=== PATIENT | male | born 1990 | race Caucasian/White ===

== ENCOUNTER 2017-02-17 18:42 | Emergency (ER) | payer MEDICAID ==
[~2017-02-17 18:42] MED LIST: AZITHROMYCIN 250 MG TAB PO SCH
[2017-02-17 18:48] VITALS: RESP 18
--- NOTE | 2017-02-17 20:54 | EDPHY ---
H & P Time Seen by Provider: 02/17/17 20:11 HPI/ROS: CHIEF COMPLAINT: Ear pain, cough, cold HISTORY OF PRESENT ILLNESS: 26-year-old male, homeless, presents reporting upper respiratory infection, cough, and ear pain x2 days. No fever. No nausea or vomiting. No sore throat. No sputum production. No chest pain, shortness of breath, palpitations, vomiting, diarrhea, urinary complaints, headache, lightheadedness. REVIEW OF SYSTEMS: Aside from elements discussed in the HPI, a comprehensive 10-point review of systems was reviewed and is negative. PAST MEDICAL HISTORY: Schizophrenia SOCIAL HISTORY: Homeless, smoker VITAL SIGNS: see nurse's notes. GENERAL: Well-developed, well-nourished, in no acute distress. HEENT: Atraumatic Eyes: PERRL, EOMI, no conjunctival injection. Ears: Left tympanic membrane is partially occluded with cerumen. TM which is visible as erythematous, bulging. Right TM is occluded with cerumen. Nose: No discharge. Mouth: moist mucous membranes. Pharynx: no erythema, no exudates , no swelling, no abscess. Uvula is midline. NECK: Supple, no adenopathy, no meningismus, no tenderness. LUNGS: Diminished breath sounds throughout, occasional wheezy cough. CARDIAC: Borderline tachycardic rate. Regular rhythm. ABDOMEN: Soft, nontender, bowel sounds normal. EXTREMITIES: Normal, no edema, FROM. NEURO: Alert and oriented, grossly nonfocal. SKIN: Warm and dry, no rash. PSYCHIATRIC: Normal mentation, no agitation. Smoking Status: Current every day smoker Constitutional: Initial Vital Signs Temperature (C) 37.1 C 02/17/17 18:45 Heart Rate 102 H 02/17/17 18:45 Respiratory Rate 18 02/17/17 18:45 Blood Pressure 132/89 H 02/17/17 18:45 O2 Sat (%) 94 02/17/17 18:45 O2 Delivery Mode Room Air Allergies/Adverse Reactions: No Known Allergies Allergy (Verified 02/17/17 18:45) Home Medications: Medication Instructions Recorded Azithromycin [Zithromax] 250 mg PO DAILY #4 tab 02/17/17 MDM/Departure - MDM Medications Given: Discontinued Medications Albuterol Sulfate (Proventil Inh Prepack) 1 mdi ADORE JACOBS ONE Stop: 02/17/17 20:59 Last Admin: 02/17/17 21:04 Dose: 1 mdi Azithromycin (Zithromax) 500 mg PO EDNOW ONE PRN Reason: Protocol Stop: 02/17/17 21:00 Last Admin: 02/17/17 21:04 Dose: 500 mg ED Course/Re-evaluation: Given an albuterol inhaler, and a prescription for azithromycin. Differential Diagnosis: Differential diagnosis of the patient's symptom complex was considered including but not limited to viral upper respiratory infection, sinusitis, bacterial sinusitis, viral pharyngitis, strep pharyngitis, bronchitis, bronchospasm, and influenza. - Depart Disposition: Home, Routine, Self-Care Clinical Impression: Bronchitis Otitis media Qualifiers: Otitis media type: unspecified Laterality: left Qualified Code(s): H66.92 - Otitis media, unspecified, left ear Condition: Good Instructions: Otitis Media (ED), Acute Bronchitis (ED), How to Use a Nebulizer (ED), Bronchospasm (ED) Additional Instructions: Please drink plenty of fluid. Okay to use Tylenol or ibuprofen as needed for your ear pain. Please use the nebulizer 2 puffs every 4-6 hours for wheezing. Please take antibiotic as directed. Please take azithromycin 250 mg daily for the next 4 days. Your 1st dose is been given in the emergency department. Prescriptions: Azithromycin [Zithromax] 250 mg PO DAILY #4 tab Referrals: Nicole Leon, PAC [Primary Care Provider] - As per Instructions
[2017-02-17] MEDS ORDERED: ALBUTEROL INH PREPACK MDI TAKEHOME ONE ×2 (20:58→21:00)
[2017-02-17] MEDS ORDERED: AZITHROMYCIN 250 MG TAB PO ONE (20:59)
[2017-02-17 21:13] VITALS: BP 131/81; PULSE 82; TEMP 98.6; O2SAT 93
== END 2017-02-17 21:09 | disposition home or self-care (01) ==
DX: J20.9 Acute bronchitis, unspecified (principal); H66.92 Otitis media, unspecified, left ear; F17.200 Nicotine dependence, unspecified, uncomplicated